=== PATIENT | female | born 1980 | race Caucasian/White ===

== ENCOUNTER 2017-01-06 15:05 | Emergency (ER) | payer OTHER ==
[~2017-01-06] VITALS: Ht 170.2 cm; Wt 88.5 kg
[2017-01-06 15:19] VITALS: BP 116/71
--- NOTE | 2017-01-06 20:07 | NUR ---
PATIENT LEFT WITHOUT BEING SEEN BY DR. LEES. NO FURTHER CARE PROVIDED FOR PATIENT.
== END 2017-01-06 20:07 | disposition left against medical advice (07) ==
LOC: MED 15:05
DX: R09.89 Other specified symptoms and signs involving the circulatory and respiratory systems (principal); Z53.21 Procedure and treatment not carried out due to patient leaving prior to being seen by health care provider

== ENCOUNTER 2021-11-29 16:17 | Emergency (ER) | payer OTHER ==
[~2021-11-29] VITALS: Ht 167.6 cm; Wt 59.0 kg
[2021-11-29 16:21] VITALS: BP 114/61
[2021-11-29] MEDS ORDERED: NACL 0.9% 1,000 ML IV ONE (16:25)
[2021-11-29] MEDS ORDERED: ONDANSETRON 4 MG/2 ML VIAL IVP ONE (16:25)
--- NOTE | 2021-11-29 16:45 | NUR ---
PATIENT AMBULATED TO BED 9
--- NOTE | 2021-11-29 16:46 | NUR ---
IV ESTABLISHED, BLOOD COLLECTED AND WALKED TO LAB
--- NOTE | 2021-11-29 16:46 | NUR ---
DR SAUNDERS AT BEDSIDE
--- NOTE | 2021-11-29 16:48 | NUR ---
41/F BIB SELF C/O ABDOMINAL PAIN X1 DAY AFTER EATING SHRIP. PATIENT STATED THAT PAIN WAS A 10/10 AT THIS TIME. PMHX DENIES ALLERGIES LISTED ABOVE
[2021-11-29] MEDS ORDERED: HALOPERIDOL IM 5 MG/ML VIAL ONE (17:05)
--- NOTE | 2021-11-29 17:05 | NUR ---
URINE COLLECTED AND WALKED TO LAB, HANDED TO KIMMY
[2021-11-29 17:07] LABS: BASOPHILS % (AUTO) 0.1 % (0.0-2.0); HEMATOCRIT 40.4 % (36-48); HEMOGLOBIN 13.7 g/dL (12.0-16.0); LYMPHOCYTES # (AUTO) 0.3 K/uL (2.5-16.5); LYMPHOCYTES % (AUTO) 1.1 % (20.5-51.1); MEAN CORPUSCULAR HEMOGLOBIN 31 pg (27-31); MEAN CORPUSCULAR HGB CONC 34 g/dL (33-37); MEAN CORPUSCULAR VOLUME 91.3 fL (80-94); MONOCYTES # (AUTO) 0.2 K/uL (0.8-1.0); MONOCYTES % (AUTO) 0.8 % (1.7-9.3); NEUTROPHILS # (AUTO) 22.6 K/uL (1.8-7.7); PLATELET COUNT (AUTO) 312 K/uL (140-450); RED BLOOD CELL COUNT(AUTO) 4.43 MIL/uL (4.20-5.40); RED CELL DISTRIBUTION WIDTH 13.4 % (11.6-13.7); WHITE BLOOD COUNT (AUTO) 23.1 K/uL (4.8-10.8)
[2021-11-29] MEDS ORDERED: HALOPERIDOL IM 5 MG/ML VIAL IVP ONE (17:10)
[2021-11-29 17:11] LABS: ALBUMIN 4.3 g/dL (3.4-5.0); ANION GAP 20.3 (8-16); CARBON DIOXIDE 19.7 mmol/L (21-32); TOTAL BILIRUBIN 0.8 mg/dL (0.0-1.0)
[2021-11-29 17:20] LABS: APPEARANCE,URINE CLEAR (CLEAR); BILIRUBIN,URINE NEGATIVE (NEGATIVE); BLOOD, URINE TRACE-I (NEGATIVE); COLOR,URINE YELLOW (YELLOW); LEUKOCYTE ESTERASE ,URINE NEGATIVE (NEGATIVE); NITRITE, URINE POSITIVE (NEGATIVE); PH,URINE 8.5 (5.0-9.0); UGLUCOSE NEGATIVE (NEGATIVE)
[2021-11-29 17:24] LABS: RBC,URINE 0-5 /HPF (0-5); WBC,URINE 0 /HPF (0-5)
[2021-11-29] MEDS ORDERED: POTASSIUM CHLORIDE 10 MEQ TABER PO ONE (17:55)
[2021-11-29] MEDS ORDERED: POTASSIUM CHL 40 MEQ/ D5-1/2NS 1,000 ML IV ONE (17:55)
--- NOTE | 2021-11-29 18:30 | NUR ---
PATIENT TAKEN TO CT VIA W/C
--- NOTE | 2021-11-29 18:40 | NUR ---
PATIENT RETURNED TO BED 9 VIA W/C
--- NOTE | 2021-11-29 19:10 | NUR ---
pt is awake and alert. pt stated she feels better and ready to go. vss. pt is in stable condition. all needs met at this time. bed locked in lowest position, side rails x2 for safety.
--- NOTE | 2021-11-29 20:20 | NUR ---
PT HAD 2 CUPS OF WATER. NO N/V.
[2021-11-29] MEDS ORDERED: ONDA-188 SL (21:09)
--- NOTE | 2021-11-29 21:40 | NUR ---
PT APPEARS TO BE RESTING. EQUAL RISE AND FALL OF CHEST WALL. EYES ARE CLOSED, OPENS TO SOUND. VSS. PT IS IN STABLE CONDITION. ALL NEEDS MET AT THIS TIME. WAITING FOR IV MEDICATION TO FINISH FOR D/C. BED LOCKED IN LOWEST POSITION, SIDE RAILS X2 FOR SAFETY.
[2021-11-29 22:44] VITALS: BP 98/52
== END 2021-11-29 22:40 | disposition home or self-care (01) ==
LOC: MED 16:17
DX: R11.2 Nausea with vomiting, unspecified (principal); R19.7 Diarrhea, unspecified; Z79.899 Other long term (current) drug therapy; Z71.6 Tobacco abuse counseling; Z88.8 Allergy status to other drugs, medicaments and biological substances; Z91.018 Allergy to other foods; Z91.030 Bee allergy status
CPT/HCPCS: 36415; 74176; 80053; 81001; 81025; 83605; 83690; 85025; 87040; 96361; 96374; 96375; 99285; J1630; J2405; J7030

== ENCOUNTER 2022-12-17 00:47 | Emergency (ER) | payer OTHER ==
[~2022-12-17] VITALS: Ht 167.6 cm; Wt 69.4 kg
[~2022-12-17 00:47] MED LIST: ONDA-188 SL
[2022-12-17 01:00] VITALS: BP 105/65
--- NOTE | 2022-12-17 01:03 | NUR ---
TO LOBBY A/W BED AMBULATORY
[2022-12-17] MEDS ORDERED: MORPHINE SULFATE 4 MG/ML SYR IVP ONE (01:20)
[2022-12-17] MEDS ORDERED: ONDANSETRON 4 MG/2 ML VIAL IVP ONE ×2 (01:20→03:35)
[2022-12-17] MEDS ORDERED: NACL 0.9% 1,000 ML IV ONE ×2 (01:20→03:35)
[2022-12-17 01:40] LABS: BASOPHILS % (AUTO) 0.1 % (0.0-2.0); EOSINOPHILS # (AUTO) 0.1 K/uL (0-0.4); EOSINOPHILS % (AUTO) 0.8 % (0.0-4.0); HEMATOCRIT 41.3 % (36-48); HEMOGLOBIN 13.9 g/dL (12.0-16.0); LYMPHOCYTES # (AUTO) 2.8 K/uL (2.5-16.5); LYMPHOCYTES % (AUTO) 17.1 % (20.5-51.1); MEAN CORPUSCULAR HEMOGLOBIN 31 pg (27-31); MEAN CORPUSCULAR HGB CONC 34 g/dL (33-37); MEAN CORPUSCULAR VOLUME 91.4 fL (80-94); MONOCYTES # (AUTO) 0.8 K/uL (0.8-1.0); MONOCYTES % (AUTO) 4.8 % (1.7-9.3); NEUTROPHILS # (AUTO) 12.7 K/uL (1.8-7.7); NEUTROPHILS % (AUTO) 77.2 % (42.2-75.2); PLATELET COUNT (AUTO) 264 K/uL (140-450); RED BLOOD CELL COUNT(AUTO) 4.52 MIL/uL (4.20-5.40); RED CELL DISTRIBUTION WIDTH 13.3 % (11.6-13.7); WHITE BLOOD COUNT (AUTO) 16.5 K/uL (4.8-10.8)
[2022-12-17 01:58] LABS: ALBUMIN 4.4 g/dL (3.4-5.0); ANION GAP 15.7 (8-16); CARBON DIOXIDE 23.3 mmol/L (21-32)
--- NOTE | 2022-12-17 02:13 | NUR ---
Patient taken to bed 9.
--- NOTE | 2022-12-17 02:15 | NUR ---
Patient resting in bed, A/Ox4, chest rise and fall symmetrical, no s/s of distress.
[2022-12-17] MEDS ORDERED: HALOPERIDOL IM 5 MG/ML VIAL IM ONE (03:05)
[2022-12-17] MEDS ORDERED: KETOROLAC 30 MG/ML VIAL IVP ONE (03:35)
--- NOTE | 2022-12-17 04:08 | NUR ---
Patient resting in bed, A/Ox4, chest rise and fall symmetrical, no c/o pain or s/s of distress.
[2022-12-17] MEDS ORDERED: KCL 20 MEQ IN 100 mL PREMIX 100 ML IV ONE (05:25)
[2022-12-17] MEDS ORDERED: SIME125C PO (05:42)
[2022-12-17] MEDS ORDERED: ONDA-188 PO (05:42)
[2022-12-17] MEDS ORDERED: BEN10 PO (05:42)
[2022-12-17] MEDS ORDERED: FAMO-90 PO (05:42)
[2022-12-17] MEDS ORDERED: POTASSIUM CHLORIDE 10 MEQ TABER PO ONE (06:40)
[2022-12-17 07:09] VITALS: BP 112/65
--- NOTE | 2022-12-17 07:09 | NUR ---
Patient discharged with v/s stable. Written and verbal after care instructions given and explained. Patient alert, oriented and verbalized understanding of instructions. Wheel Chair Assisted with to car. All questions addressed prior to discharge. ID band removed. Patient advised to follow up with PMD. Rx of Bentyl, Pepcid, Zofran and Gas-x given. Patient educated on indication of medication including possible reaction and side effects. Opportunity to ask questions provided and answered.
== END 2022-12-17 07:09 | disposition home or self-care (01) ==
LOC: MED 00:47
DX: R10.84 Generalized abdominal pain (principal); R11.2 Nausea with vomiting, unspecified; R19.7 Diarrhea, unspecified; Z88.8 Allergy status to other drugs, medicaments and biological substances; Z79.899 Other long term (current) drug therapy
CPT/HCPCS: 36415; 74176; 80053; 82150; 83690; 84703; 85025; 96361; 96372; 96374; 96375; 99285; J1630; J1885; J2405; J7030